=== PATIENT | female | born 2000 | race Caucasian/White ===

== ENCOUNTER 2021-04-15 09:48 | Emergency (ER) | payer OTHER ==
[~2021-04-15 09:48] MED LIST: PROTONIX40 MG PO; ZOFRAN 8 MG TAB8 MG GT
[2021-04-15 10:54] LABS: HEMOGLOBIN 15.2 gm/dl (12.3-15.3); RED BLOOD COUNT 4.19 M/UL (4.00-5.10); WHITE BLOOD COUNT 14.9 K/UL (4.5-11.0)
[2021-04-15 11:14] LABS: BUN/CREATININE RATIO 12 (0-10)
[2021-04-15] MEDS ORDERED: PHENERGAN 25 MG25 M1 PO (14:28)
[2021-04-15] MEDS ORDERED: ONDANSETRON ODT4 MG SL (14:28)
[2021-04-15] MEDS ORDERED: CEFUROXIME500 MG PO (14:28)
[2021-04-15] MEDS ORDERED: PROAIR HFA8.5 GM INH (14:28)
== END 2021-04-15 15:10 | disposition home or self-care (01) ==
LOC: ER1 09:48
PROVIDERS: Physician Assistant
DX: R10.32 Left lower quadrant pain (principal); R42 Dizziness and giddiness; R11.2 Nausea with vomiting, unspecified; Z20.822 Contact with and (suspected) exposure to COVID-19
CPT/HCPCS: 71046; 80053; 81001; 84703; 85025; 87086; 96374; 96375; 96376; 99284; J1885; J2405; J2550; J7030; U0002